=== PATIENT | female | born 1950 | race African-American/Black ===

== ENCOUNTER 2018-02-19 21:05 | Emergency (ER) | payer MEDICARE ==
[~2018-02-19] VITALS: Ht 162.6 cm; Wt 54.5 kg
[~2018-02-19 21:05] MED LIST: CATAPRES0.1 MG PEG; CATAPRES0.2 MG PEG; COLACE50 MG/5 ML PEG; FLORANEX / LACT1 TAB PEG; KEPPRA500 MG PEG; MIRALAX17 GM PEG; NORMODYNE / TR300 MG PEG; NORVASC10 MG PEG; POTASSIUM20 MEQ/11 PEG; PROTONIX FOR OR40 MG PEG; SYNTHROID150 MCG PEG; SYNTHROID200 MC1 PEG; TRANDATE300 MG PEG
[2018-02-19 21:13] VITALS: Ht 162.6 cm; Wt 54.5 kg
[2018-02-19] MEDS ORDERED: BAYER CHEWABLE81 MG PO (21:16)
[2018-02-19] MEDS ORDERED: LIPITOR40 MG PO (21:16)
[2018-02-19] MEDS ORDERED: ULTRAM50 MG PO (21:18)
[2018-02-20 04:30] VITALS: BP 139/98
== END 2018-02-20 04:49 | disposition home or self-care (01) ==
LOC: D.ER 21:05
DX: K94.23 Gastrostomy malfunction (principal); G40.909 Epilepsy, unspecified, not intractable, without status epilepticus; Z86.73 Personal history of transient ischemic attack (TIA), and cerebral infarction without residual deficits; F03.90 Unspecified dementia, unspecified severity, without behavioral disturbance, psychotic disturbance, mood disturbance, and anxiety; E11.9 Type 2 diabetes mellitus without complications; N18.4 Chronic kidney disease, stage 4 (severe); K21.9 Gastro-esophageal reflux disease without esophagitis

== ENCOUNTER 2018-05-29 11:11 | Emergency (ER) | payer MEDICARE ==
[~2018-05-29] VITALS: Ht 162.6 cm; Wt 79.5 kg
[~2018-05-29 11:11] MED LIST changes: +BAYER CHEWABLE81 MG PO; +LIPITOR40 MG PO; +ULTRAM50 MG PO
[2018-05-29 11:15] VITALS: Ht 162.6 cm; Wt 79.5 kg
[2018-05-29 13:57] VITALS: BP 182/100
== END 2018-05-29 13:57 | disposition home or self-care (01) ==
LOC: D.ER 11:11
DX: K94.23 Gastrostomy malfunction (principal); Z86.73 Personal history of transient ischemic attack (TIA), and cerebral infarction without residual deficits; G40.909 Epilepsy, unspecified, not intractable, without status epilepticus; F03.90 Unspecified dementia, unspecified severity, without behavioral disturbance, psychotic disturbance, mood disturbance, and anxiety; E11.9 Type 2 diabetes mellitus without complications; I10 Essential (primary) hypertension; K21.9 Gastro-esophageal reflux disease without esophagitis